=== PATIENT | female | born 1950 | race Caucasian/White ===

== ENCOUNTER → 2017-06-06 | Outpatient (CLI) | payer MEDICARE | END | disposition home or self-care (01) | LOC: LAB 12:39 | PROVIDERS: Registered Nurse | DX: Z12.4 Encounter for screening for malignant neoplasm of cervix (principal) | CPT/HCPCS: G0123 ==

== ENCOUNTER 2023-06-13 12:16 | Day surgery (SDC) | payer OTHER ==
[~2023-06-13] VITALS: Ht 157.5 cm; Wt 83.7 kg
[2023-06-13] MEDS ORDERED: Lisinopril-Hct1 EAC4 (12:42)
[2023-06-13] MEDS ORDERED: ATOR20 (12:43)
[2023-06-13 15:46] VITALS: BP 111/82
--- NOTE | 2023-06-13 15:48 | NUR ---
06/13/23 1548 Bekah Mcmahan IV DC'D CATH INTACT. PT TOLERATED WELL. GAUZE/COBAN IN PLACE
== END 2023-06-13 15:48 | disposition home or self-care (01) ==
LOC: ORSCSDS 12:16
PROVIDERS: Internal Medicine Gastroenterology
PROC: 0DBK8ZX Excision of Ascending Colon, Via Natural or Artificial Opening Endoscopic, Diagnostic (ICD-10-PCS; principal; 2023-06-13 13:30)
PROC: 0DBL8ZX Excision of Transverse Colon, Via Natural or Artificial Opening Endoscopic, Diagnostic (ICD-10-PCS; principal; 2023-06-13 13:30)
DX: Z12.11 Encounter for screening for malignant neoplasm of colon (principal); R19.5 Other fecal abnormalities; D12.3 Benign neoplasm of transverse colon; Z83.719 Family history of colon polyps, unspecified; K63.5 Polyp of colon; K64.4 Residual hemorrhoidal skin tags; I10 Essential (primary) hypertension; E66.9 Obesity, unspecified; Z68.34 Body mass index [BMI] 34.0-34.9, adult; Z79.899 Other long term (current) drug therapy
CPT/HCPCS: 88305; J0461; J2001; J2405; J2704; Q9968

== ENCOUNTER 2024-03-10 10:22 | Day surgery (SDC) | payer OTHER ==
[~2024-03-10] VITALS: Ht 157.5 cm; Wt 89.8 kg
[~2024-03-10 10:22] MED LIST: ATOR20; Balanced Salt Epinephrine Irrigation Solution 500 mL IR SCH; Lidocaine HCl/Pf 1% 5 ML VIAL XX SCH; Lisinopril-Hct1 EAC4; Moxifloxacin HCL 0.5 MG/0.1 ML 0.4MLSYR RIGHTEYE SCH; NS 500 ML IV ONE; PHENYLEPHRINE\\TROPICAMIDE\\TETRACAINE OPHTHALMIC DILATING SOLN RIGHTEYE PRN; Povidone-Iodine 450 DROP/30 ML Solution ONE; Povidone-Iodine 450 DROP/30 ML Solution RIGHTEYE SCH; Tetracaine HCl/Pf 0.5% Opth Soln 4 ml ONE
[2024-03-10] MEDS ORDERED: Midazolam HCl 1MG / ML 2ML Vial ONE (11:04)
[2024-03-10 11:27] VITALS: BP 123/75
== END 2024-03-10 11:45 | disposition home or self-care (01) ==
LOC: ORSCSDS 10:22
PROVIDERS: Student in an Organized Health Care Education/Training Program
PROC: 08RJ3JZ Replacement of Right Lens with Synthetic Substitute, Percutaneous Approach (ICD-10-PCS; principal; 2024-03-10 11:30)
DX: H25.813 Combined forms of age-related cataract, bilateral (principal); H40.003 Preglaucoma, unspecified, bilateral; I10 Essential (primary) hypertension; E66.9 Obesity, unspecified; Z68.36 Body mass index [BMI] 36.0-36.9, adult; Z79.899 Other long term (current) drug therapy
CPT/HCPCS: J2250; J7040; V2632

== ENCOUNTER 2024-03-17 10:17 | Day surgery (SDC) | payer OTHER ==
[~2024-03-17] VITALS: Ht 157.5 cm; Wt 89.1 kg
[~2024-03-17 10:17] MED LIST changes: +Moxifloxacin HCL 0.5 MG/0.1 ML 0.4MLSYR LEFTEYE SCH; -Moxifloxacin HCL 0.5 MG/0.1 ML 0.4MLSYR RIGHTEYE SCH; +PHENYLEPHRINE\\TROPICAMIDE\\TETRACAINE OPHTHALMIC DILATING SOLN LEFTEYE PRN; -PHENYLEPHRINE\\TROPICAMIDE\\TETRACAINE OPHTHALMIC DILATING SOLN RIGHTEYE PRN; +Povidone-Iodine 450 DROP/30 ML Solution LEFTEYE SCH; -Povidone-Iodine 450 DROP/30 ML Solution RIGHTEYE SCH
[2024-03-17] MEDS ORDERED: NS 500 ML IV ONE ×2 (10:33→11:12)
--- NOTE | 2024-03-17 10:34 | NUR ---
03/17/24 1034 Saray Arreola CALL LIGHT WITHIN REACH. TETRACAINE IN LEFT EYE AT 1033 AND PLEDGETT IN AT 1034
[2024-03-17] MEDS ORDERED: FentaNYL Citrate 50 MCG/ML 2 ML Injection ONE (10:40)
[2024-03-17] MEDS ORDERED: Midazolam HCl 1MG / ML 2ML Vial ONE (10:40)
[2024-03-17 11:42] VITALS: BP 111/72
--- NOTE | 2024-03-17 11:43 | NUR ---
03/17/24 1143 Ludwig Bates PT INSTRUCTED TO MONITOR B/P AT HOME, AND FOLLOW UP WITH PCP IF NEEDED. SHE STATES BASELINE B/P IS WITHIN 20% OF CURRENT B/P.
== END 2024-03-17 11:30 | disposition home or self-care (01) ==
LOC: ORSCSDS 10:17
PROVIDERS: Student in an Organized Health Care Education/Training Program
PROC: 08RK3JZ Replacement of Left Lens with Synthetic Substitute, Percutaneous Approach (ICD-10-PCS; principal; 2024-03-17 11:30)
DX: H25.812 Combined forms of age-related cataract, left eye (principal); Z96.1 Presence of intraocular lens; I10 Essential (primary) hypertension; E78.5 Hyperlipidemia, unspecified; E66.9 Obesity, unspecified; Z68.35 Body mass index [BMI] 35.0-35.9, adult; Z79.899 Other long term (current) drug therapy
CPT/HCPCS: J2250; J3010; J7040; V2632

== ENCOUNTER 2025-05-25 08:23 | Observation (INO) | payer OTHER ==
[~2025-05-25] VITALS: Ht 157.5 cm; Wt 83.8 kg
[~2025-05-25 08:23] MED LIST changes: -ATOR20; +ATOR20 PO; -Balanced Salt Epinephrine Irrigation Solution 500 mL IR SCH; -Lidocaine HCl/Pf 1% 5 ML VIAL XX SCH; -Lisinopril-Hct1 EAC4; +Lisinopril-Hct1 EAC4 PO; -Moxifloxacin HCL 0.5 MG/0.1 ML 0.4MLSYR LEFTEYE SCH; -NS 500 ML IV ONE; -PHENYLEPHRINE\\TROPICAMIDE\\TETRACAINE OPHTHALMIC DILATING SOLN LEFTEYE PRN; -Povidone-Iodine 450 DROP/30 ML Solution LEFTEYE SCH; -Povidone-Iodine 450 DROP/30 ML Solution ONE; -Tetracaine HCl/Pf 0.5% Opth Soln 4 ml ONE
[2025-05-25] MEDS ORDERED: NS 1,000 ML IV SCH ×2 (08:55→10:55)
[2025-05-25 09:00] LABS: BASOPHILS ABSOLUTE AUTO 0.06 K/mm3 (0.00-0.23); BASOPHILS PERCENT AUTO 1 % (0-2); EOSINOPHILS ABSOLUTE AUTO 0.11 K/mm3 (0.00-0.68); EOSINOPHILS PERCENT AUTO 2 % (0-6); Hematocrit 39.9 % (33.0-51.0); Hemoglobin 13.1 g/dL (11.5-16.0); IMMATURE GRAN ABSOLUTE AUTO 0.01 K/mm3 (0.00-0.10); IMMATURE GRAN PERCENT AUTO 0 % (0-1); LYMPHOCYTES ABSOLUTE AUTO 1.68 K/mm3 (0.84-5.20); LYMPHOCYTES PERCENT AUTO 24 % (21-46); MONOCYTES ABSOLUTE AUTO 0.60 K/mm3 (0.16-1.47); MONOCYTES PERCENT AUTO 8 % (4-13); Mean Corpuscular HGB Conc 32.8 g/dL (31.5-36.5); Mean Corpuscular Volume 89 fL (80-100); NEUTROPHILS ABSOLUTE AUTO 4.66 K/mm3 (1.96-9.15); NEUTROPHILS PERCENT AUTO 66 % (41-73); NRBC ABSOLUTE 0.00 K/mm3 (0.00-0.02); NRBC Auto 0.0 /100 WBC (0.0-0.2); Platelet Count 259 K/mm3 (150-400); RDW Coefficient Variation 13.6 % (11.7-14.2); RDW Standard Deviation 44.2 fL (35.1-46.3)
[2025-05-25 09:22] LABS: Alanine Aminotransfer (ALT/SGP 23.0 U/L (12-78); Albumin, Blood 3.3 g/dL (3.4-5.0); Albumin/Globulin Ratio 0.8 (0.8-1.8); Anion Gap 8.0 mmol/L (3-11); Aspartate Aminotrans (AST/SGOT 24.0 U/L (12-37); Bilirubin, Total 0.5 mg/dL (0.1-1.0); Blood Urea Nitrogen 23.0 mg/dL (8-24); CO2, Blood 28.0 mmol/L (21-32); Calcium, Blood 8.8 mg/dL (8.5-10.1); Chloride, Blood 106.0 mmol/L (98-108); Creatinine, Blood 0.74 mg/dL (0.40-1.00); Globulin, Blood 4.2 g/dL (2.2-4.0); Glucose, Blood 145.0 mg/dL (70-99); Magnesium, Blood 2.0 mg/dL (1.6-2.4); Potassium, Blood 3.8 mmol/L (3.5-5.5); Sodium, Blood 138.0 mmol/L (136-145); Total Protein, Blood 7.5 g/dL (6.4-8.2)
[2025-05-25] MEDS ORDERED: Metoprolol Tartrate 1 MG/ML 5 ML VIAL IV PRN (10:25)
[2025-05-25] MEDS ORDERED: FLU VACC TS2025(65UP)/MF59C/PF 45 MCG/0.5 ML SYRINGE IM SCH (11:05)
[2025-05-25 11:31] LABS: Thyroid Stimulating Hormone 2.39 uIU/mL (0.360-4.800)
[2025-05-25 12:54] VITALS: BP 125/76
[2025-05-25 15:51] VITALS: BP 116/76
--- NOTE | 2025-05-25 17:45 | NUR ---
SHIFT SUMMARY PT AOX4, COOPERATIVE, ABLE TO MAKE NEEDS KNOWN. PT IS IND IN ROOM ASSESSED BY NURSING STAFF, ON ROOM AIR. RUNNING NS 75ML/HR. TELE ACTIVE. NO SKIN PROBLEMS NOTED. POSSIBLE DC TOMORROW. BED IN LOWEST POSITION, CALL LIGHT WITHIN REACH.
[2025-05-25 19:23] VITALS: BP 98/56
[2025-05-25 20:55] VITALS: BP 124/74
[2025-05-26 00:29] VITALS: BP 110/68
[2025-05-26 05:27] LABS: Hematocrit 36.0 % (33.0-51.0); Hemoglobin 11.6 g/dL (11.5-16.0); Mean Corpuscular HGB Conc 32.2 g/dL (31.5-36.5); Mean Corpuscular Volume 90 fL (80-100); NRBC ABSOLUTE 0.00 K/mm3 (0.00-0.02); NRBC Auto 0.0 /100 WBC (0.0-0.2); Platelet Count 216 K/mm3 (150-400); RDW Coefficient Variation 13.7 % (11.7-14.2); RDW Standard Deviation 45.2 fL (35.1-46.3)
[2025-05-26 05:51] LABS: Anion Gap 8.0 mmol/L (3-11); Blood Urea Nitrogen 17.0 mg/dL (8-24); CO2, Blood 25.0 mmol/L (21-32); Calcium, Blood 8.2 mg/dL (8.5-10.1); Chloride, Blood 112.0 mmol/L (98-108); Creatinine, Blood 0.7 mg/dL (0.40-1.00); Glucose, Blood 86.0 mg/dL (70-99); Magnesium, Blood 2.0 mg/dL (1.6-2.4); Potassium, Blood 3.5 mmol/L (3.5-5.5); Sodium, Blood 141.0 mmol/L (136-145)
--- NOTE | 2025-05-26 07:21 | NUR ---
Shift Summary Pt on tele t/o the night, she was running NSR all night, no instances of AFIB. She completed her IVF as ordered. Pt is AOx4, 1 SBA for line managment when up.
[2025-05-26 07:27] VITALS: BP 114/72
[2025-05-26] MEDS ORDERED: Enoxaparin 40 MG/0.4 ML SYR SC SCH (09:00)
[2025-05-26 09:42] VITALS: BP 125/75
[2025-05-26 09:44] VITALS: BP 128/82
[2025-05-26 09:45] VITALS: BP 131/84
[2025-05-26 11:17] VITALS: BP 114/82
[2025-05-26] MEDS ORDERED: ELIQUIS5 M2 PO (13:08)
[2025-05-26] MEDS ORDERED: METO25ER PO (13:09)
--- NOTE | 2025-05-26 13:31 | NUR ---
DISCHARGE NOTE PT D/C HOME AT 1320. PT AND PT'S FAMILY PROVIDED W/ VERBAL AND WRITTEN INSTRUCTIONS AND REPORTED UNDERSTANDING. PT A&OX4, VSS, AMB IND, TOLERATING PO, VOIDING, AND DENIED PAIN. BELONGINGS WERE RETURNED AND PT WALKED OUT IND W/ FAMILY.
== END 2025-05-26 13:25 | disposition home or self-care (01) ==
LOC: ER 08:23 → MEDS 08:24
PROVIDERS: Emergency Medicine; ADMIT Internal Medicine
DX: I48.91 Unspecified atrial fibrillation (principal); R55 Syncope and collapse; I10 Essential (primary) hypertension; E86.0 Dehydration; E78.5 Hyperlipidemia, unspecified; Z79.899 Other long term (current) drug therapy
CPT/HCPCS: 36415; 80048; 80053; 83735; 83880; 84439; 84443; 84481; 84484; 85025; 85027; 93005; 93010; 93306; 96374; 99285-25; A9270; G0378; J7030